=== PATIENT | male | born 1970 | race Hispanic/Latino ===

== ENCOUNTER 2024-04-05 08:55 | Day surgery (SDC) | payer OTHER ==
[2024-04-04 10:54] LABS: Absolute Basophils 0.1 K/uL (0-0.5); Absolute Eosinophils 0.2 K/uL (0-0.5); Absolute Lymphocytes (CBC) 3.4 K/uL (0.7-4.9); Absolute Monocytes 0.8 K/uL (0.1-1.3); Absolute Neutrophil 4.7 K/uL (1.8-8.0); Eosinophils % 2.2 % (0-4.4); Hematocrit 45.3 % (39.6-49.0); Hemoglobin 14.7 g/dL (13.6-17.9); Lymphocytes % 36.6 % (15.3-44.8); MCH 27.6 pg (27.0-35.0); MCHC 32.3 g/dL (32.0-36.0); MCV 85.4 fL (80-100); MPV 8.5 fL (7.6-11.3); Monocytes % 9.2 % (3.3-12.3); Platelets 232 thou/uL (152-406); RBC Red Blood Cell Count 5.31 M/uL (4.33-5.43); Red Cell Distribution Width 13.9 % (12.1-15.2)
[2024-04-04 11:11] LABS: Anion Gap 6.9 mEq/L (5.0-15.0); Potassium 3.9 mEq/L (3.5-5.1)
[2024-04-05] MEDS: NA CHLORIDE 0.9% 1,000 ML ONE (09:25)
[2024-04-05] MEDS ORDERED: LIDOCAINE 1% MPF 5 ML VIAL ONE (10:37)
[2024-04-05] MEDS ORDERED: propofoL 200 MG/20 ML VIAL IV ONE (10:37)
[2024-04-05] MEDS ORDERED: GLYCOPYRROLATE 0.2 MG/ML SYR ONE (10:53)
--- NOTE | 2024-04-05 15:42 | EKG ---
Test Date: 2024-04-04 Test Time: 11:42:11 [employer]: VINH MEASUREMENT RESULTS: Intervals: Rate: 46 MI: 178 QRSD: 94 QT: 438 QTc: 383 [place]: P: 35 MI: 178 QRS: 53 T: 26 INTERPRETIVE STATEMENTS: Marked sinus bradycardia Abnormal ECG Compared to ECG 01/12/2021 20:24:56 Sinus rhythm no longer present Myocardial infarct finding no longer present Electronically Signed On 04-05-24 15:40:12 [employer] by Behzad Brady
[2024-04-05 15:51] VITALS: BP 129/79; TEMP 97.3; O2SAT 97
== END 2024-04-05 12:33 | disposition home or self-care (01) ==
LOC: OR 08:55
PROVIDERS: ATTEND Surgery
PROC: 0DBN8ZX Excision of Sigmoid Colon, Via Natural or Artificial Opening Endoscopic, Diagnostic (ICD-10-PCS; 2024-04-05)
PROC: 0DB98ZX Excision of Duodenum, Via Natural or Artificial Opening Endoscopic, Diagnostic (ICD-10-PCS; 2024-04-05)
PROC: 0DB78ZX Excision of Stomach, Pylorus, Via Natural or Artificial Opening Endoscopic, Diagnostic (ICD-10-PCS; 2024-04-05)
PROC: 0DB68ZX Excision of Stomach, Via Natural or Artificial Opening Endoscopic, Diagnostic (ICD-10-PCS; 2024-04-05)
PROC: 0DB48ZX Excision of Esophagogastric Junction, Via Natural or Artificial Opening Endoscopic, Diagnostic (ICD-10-PCS; 2024-04-05)
PROC: 0DBP8ZX Excision of Rectum, Via Natural or Artificial Opening Endoscopic, Diagnostic (ICD-10-PCS; principal; 2024-04-05 10:30)
PROC: 0DBL8ZX Excision of Transverse Colon, Via Natural or Artificial Opening Endoscopic, Diagnostic (ICD-10-PCS; 2024-04-05 10:30)
DX: Z12.11 Encounter for screening for malignant neoplasm of colon (principal); K21.9 Gastro-esophageal reflux disease without esophagitis; R07.89 Other chest pain; R14.0 Abdominal distension (gaseous); K51.20 Ulcerative (chronic) proctitis without complications; K57.30 Diverticulosis of large intestine without perforation or abscess without bleeding; K64.8 Other hemorrhoids; D12.3 Benign neoplasm of transverse colon; D12.7 Benign neoplasm of rectosigmoid junction; D12.5 Benign neoplasm of sigmoid colon; K29.80 Duodenitis without bleeding; A04.8 Other specified bacterial intestinal infections; K29.50 Unspecified chronic gastritis without bleeding
CPT/HCPCS: 93005; 85025; 80048; 36415; 88312; 82947; 88305; 45385; 43239; J2704; J2003; J7030